=== PATIENT | female | born 1970 ===

== ENCOUNTER 2019-08-28 16:18 | Emergency (ER) | payer BC ==
[~2019-08-28] VITALS: Ht 165.1 cm; Wt 83.0 kg
[2019-08-28] MEDS ORDERED: ACETAMINOPHEN 500MG TABLET PO ONE (20:30)
[2019-08-28] MEDS ORDERED: IBUPROFEN 800MG TABLET PO ONE (20:30)
[2019-08-28 21:58] VITALS: BP 124/74
== END 2019-08-28 21:59 | disposition home or self-care (01) ==
LOC: ER 16:18
DX: S06.0X9A Concussion with loss of consciousness of unspecified duration, initial encounter (principal); S83.91XA Sprain of unspecified site of right knee, initial encounter; S33.5XXA Sprain of ligaments of lumbar spine, initial encounter; G43.909 Migraine, unspecified, not intractable, without status migrainosus; I10 Essential (primary) hypertension; W01.0XXA Fall on same level from slipping, tripping and stumbling without subsequent striking against object, initial encounter; Y93.89 Activity, other specified; Y92.512 Supermarket, store or market as the place of occurrence of the external cause; Z88.3 Allergy status to other anti-infective agents; Z90.710 Acquired absence of both cervix and uterus
CPT/HCPCS: 72100; 73560; 99283